=== PATIENT | male | born 2005 | race African-American/Black ===

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

== ENCOUNTER 2024-02-17 09:28 | Inpatient (IN) | payer MEDICAID, OTHER ==
[~2024-02-17] VITALS: Ht 188 cm; Wt 129.2 kg
[~2024-02-17 09:28] MED LIST changes: +INVE234I IM; +NICO21PAT TD; +PALI1TAB3 PO; +TRAZ-252 PO
[2024-02-17] MEDS ORDERED: DIVA500T94 PO (09:41)
[2024-02-17] MEDS ORDERED: PROP10TA56 PO (09:41)
[2024-02-17] MEDS ORDERED: CLOZ100T5 PO (09:41)
[2024-02-17] MEDS ORDERED: FERR325T3 PO (09:41)
[2024-02-17] MEDS ORDERED: HOME MED LIST COMPLETE! XX SCH (11:05)
[2024-02-17 11:19] LABS: HEMATOCRIT 43.7 % (42.0-52.0); HEMOGLOBIN 15.2 g/dl (13.5-17.5); MEAN CORPUSCULAR HGB CONC 34.8 g/dl (32.0-36.5); MEAN CORPUSCULAR VOLUME 86.4 fl (80.0-96.0); PLATELET COUNT, AUTOMATED 278 10^3/uL (150-450); RED BLOOD COUNT 5.06 10^6/uL (4.30-6.10); WHITE BLOOD COUNT 7.1 10^3/uL (4.0-10.0)
[2024-02-17 11:42] LABS: AMPHETAMINES LEVEL URINE NEGATIVE (NEGATIVE); BARBITURATES URINE NEGATIVE (NEGATIVE)
[2024-02-17 11:44] LABS: BENZODIAZEPINES URINE NEGATIVE (NEGATIVE); COCAINE METABOLITE URINE NEGATIVE (NEGATIVE); METHADONE URINE NEGATIVE (NEGATIVE); OPIATES URINE NEGATIVE (NEGATIVE); PHENCYCLIDINE URINE NEGATIVE (NEGATIVE)
[2024-02-17 11:46] LABS: ETHYL ALCOHOL (ETHANOL) < 0.003 % (0.000-0.010)
[2024-02-17 11:48] LABS: ALBUMIN 3.9 G/DL (3.2-5.2); ALKALINE PHOSPHATASE 95 U/L (46-116); ALT/SGPT 45 U/L (7.0-40); AST/SGOT 24 U/L (<34); BILIRUBIN,DIRECT 0.2 MG/DL (<0.4); BILIRUBIN,TOTAL 0.4 MG/DL (0.3-1.2); BLOOD UREA NITROGEN 14 MG/DL (9-23); CALCIUM LEVEL 9.4 MG/DL (8.5-10.1); CARBON DIOXIDE LEVEL 27 MMOL/L (20-31); CHLORIDE LEVEL 106 MMOL/L (98-107); CREATININE FOR GFR 0.82 MG/DL (0.70-1.30); GLUCOSE, FASTING 81 MG/DL (60-100); POTASSIUM SERUM 4.4 MMOL/L (3.5-5.1); SALICYLATE LEVEL < 3.0 MG/DL (<30); SODIUM LEVEL 139 MMOL/L (136-145); TOTAL PROTEIN 6.7 G/DL (5.7-8.2)
[2024-02-17 11:49] LABS: CANNABINOIDS URINE POSITIVE (NEGATIVE)
[2024-02-17 11:50] LABS: THYROID STIMULATING HORMONE 1.397 uIU/ML (0.48-4.17)
[2024-02-17] MEDS ORDERED: traZODone 50 MG TAB PO PRN (14:00)
[2024-02-17] MEDS ORDERED: OLANZapine ORAL DISINTEGRATING TAB 5MG PO PRN (14:00)
[2024-02-17] MEDS ORDERED: ACETAMINOPHEN TAB 650MG DOSE (2X325MG) PO PRN (14:00)
[2024-02-17] MEDS ORDERED: MAALOX 30 ML SUSP *UDC PO PRN (14:00)
[2024-02-17] MEDS ORDERED: diphenhydrAMINE 25MG CAP PO PRN (14:00)
[2024-02-17] MEDS ORDERED: IBUPROFEN 400MG TAB PO PRN (14:00)
[2024-02-17] MEDS ORDERED: MOM 30ML SUSPENSION UDC PO PRN (14:00)
[2024-02-17 17:34] VITALS: BP 146/71; TEMP 98.3; O2SAT 99
[2024-02-18 06:05] VITALS: BP 160/70; TEMP 97.6; O2SAT 100
== END 2024-02-18 14:44 | disposition home or self-care (01) | DRG 751 ==
LOC: M ED 09:28 → M ED INP 13:58 → M PSY 17:17
PROVIDERS: ADMIT Student in an Organized Health Care Education/Training Program; ATTEND Student in an Organized Health Care Education/Training Program
DX: F29 Unspecified psychosis not due to a substance or known physiological condition (principal); F12.90 Cannabis use, unspecified, uncomplicated; F90.9 Attention-deficit hyperactivity disorder, unspecified type; F20.9 Schizophrenia, unspecified; Z91.148 Patient's other noncompliance with medication regimen for other reason

== ENCOUNTER 2024-05-26 11:15 | Inpatient (IN) | payer MEDICAID ==
[~2024-05-26] VITALS: Ht 185.4 cm; Wt 113.7 kg
[~2024-05-26 11:15] MED LIST changes: +CLOZ100T5 PO; +DIVA500T94 PO; +FERR325T3 PO; +PROP10TA56 PO
[2024-05-26 12:10] LABS: HEMATOCRIT 39.9 % (42.0-52.0); HEMOGLOBIN 13.6 g/dl (13.5-17.5); MEAN CORPUSCULAR HEMOGLOBIN 29.7 pg (27.0-33.0); MEAN CORPUSCULAR HGB CONC 34.1 g/dl (32.0-36.5); MEAN CORPUSCULAR VOLUME 87.1 fl (80.0-96.0); PLATELET COUNT, AUTOMATED 266 10^3/uL (150-450); RED BLOOD COUNT 4.58 10^6/uL (4.30-6.10); WHITE BLOOD COUNT 6.6 10^3/uL (4.0-10.0)
[2024-05-26] MEDS: HALOPERIDOL LACTATE 5MG/ML VIAL IM ONE (12:30)
[2024-05-26] MEDS: LORazepam 2 MG/ML 1ML VIAL IM ONE (12:30)
[2024-05-26] MEDS ORDERED: HOME MED LIST COMPLETE! XX SCH (12:30)
[2024-05-26 12:34] LABS: AMPHETAMINES LEVEL URINE NEGATIVE (NEGATIVE); BARBITURATES URINE NEGATIVE (NEGATIVE); BENZODIAZEPINES URINE NEGATIVE (NEGATIVE); COCAINE METABOLITE URINE NEGATIVE (NEGATIVE); METHADONE URINE NEGATIVE (NEGATIVE); OPIATES URINE NEGATIVE (NEGATIVE); PHENCYCLIDINE URINE NEGATIVE (NEGATIVE)
[2024-05-26 12:35] LABS: ETHYL ALCOHOL (ETHANOL) < 0.003 % (0.000-0.010)
[2024-05-26 12:37] LABS: ALBUMIN 3.8 G/DL (3.2-5.2); ALKALINE PHOSPHATASE 83 U/L (46-116); ALT/SGPT 41 U/L (7.0-40); AST/SGOT 24 U/L (<34); BILIRUBIN,DIRECT 0.2 MG/DL (<0.4); BILIRUBIN,TOTAL 0.5 MG/DL (0.3-1.2); BLOOD UREA NITROGEN 18 MG/DL (9-23); CALCIUM LEVEL 8.9 MG/DL (8.5-10.1); CARBON DIOXIDE LEVEL 25 MMOL/L (20-31); CHLORIDE LEVEL 109 MMOL/L (98-107); CREATININE FOR GFR 0.82 MG/DL (0.70-1.30); GLUCOSE, FASTING 82 MG/DL (60-100); POTASSIUM SERUM 3.8 MMOL/L (3.5-5.1); SALICYLATE LEVEL < 3.0 MG/DL (<30); SODIUM LEVEL 139 MMOL/L (136-145); TOTAL PROTEIN 6.3 G/DL (5.7-8.2)
[2024-05-26 12:39] LABS: THYROID STIMULATING HORMONE 0.847 uIU/ML (0.48-4.17)
[2024-05-26 12:46] LABS: CANNABINOIDS URINE POSITIVE (NEGATIVE)
[2024-05-26] MEDS ORDERED: IBUPROFEN 400MG TAB PO PRN (13:25)
[2024-05-26] MEDS ORDERED: MAALOX 30 ML SUSP *UDC PO PRN (13:25)
[2024-05-26] MEDS ORDERED: ACETAMINOPHEN TAB 650MG DOSE (2X325MG) PO PRN (13:25)
[2024-05-26] MEDS ORDERED: MOM 30ML SUSPENSION UDC PO PRN (13:25)
[2024-05-26] MEDS ORDERED: diphenhydrAMINE 25MG CAP PO PRN (13:25)
[2024-05-26 16:12] VITALS: BP 137/59; TEMP 98.1; O2SAT 100
[2024-05-27] MEDS ORDERED: diphenhydrAMINE 50MG CAP PO PRN (10:40)
[2024-05-27] MEDS ORDERED: LORazepam 2 MG TAB PO PRN (10:40)
[2024-05-27] MEDS: DIVALPROEX 250MG TAB PO SCH (12:11)
[2024-05-28] MEDS: LORazepam 2 MG TAB PO PRN (14:05)
[2024-05-28 16:06] VITALS: BP 140/70; TEMP 98.3; O2SAT 100
[2024-05-29 16:03] VITALS: BP 150/74; TEMP 97.9; O2SAT 99
[2024-05-29] MEDS: OLANZapine ORAL DISINTEGRATING TAB 5MG PO PRN (17:07)
[2024-05-29] MEDS: DIVALPROEX 250MG TAB PO SCH (20:45)
[2024-05-30 06:10] VITALS: BP 97/66; TEMP 97.9; O2SAT 97
[2024-05-30 18:34] VITALS: BP 149/78; TEMP 98.4; O2SAT 99
[2024-05-30] MEDS: traZODone 50 MG TAB PO PRN (21:35)
[2024-05-31 06:10] VITALS: BP 116/57; TEMP 97.4; O2SAT 100
[2024-05-31] MEDS ORDERED: HALO10TA20 PO (09:56)
[2024-05-31] MEDS ORDERED: DEPA250T32 PO (09:56)
[2024-05-31] MEDS ORDERED: TRAZ-252 PO (10:47)
[2024-05-31] MEDS ORDERED: OLAN5ZYD PO (10:47)
== END 2024-05-31 12:20 | disposition home or self-care (01) | DRG 750 ==
LOC: M ED 11:15 → M ED INP 13:25 → M PSY 16:12
PROVIDERS: ADMIT Psychiatry & Neurology Child & Adolescent Psychiatry; ATTEND Psychiatry & Neurology Child & Adolescent Psychiatry
DX: F20.0 Paranoid schizophrenia (principal); Z91.119 Patient's noncompliance with dietary regimen due to unspecified reason; F12.90 Cannabis use, unspecified, uncomplicated; Z91.148 Patient's other noncompliance with medication regimen for other reason

== ENCOUNTER 2024-05-31 19:02 | Emergency (ER) | payer MEDICAID, OTHER ==
[~2024-05-31] VITALS: Ht 185.4 cm; Wt 90.0 kg
[~2024-05-31 19:02] MED LIST changes: +DEPA250T32 PO; +HALO10TA20 PO; +OLAN5ZYD PO
[2024-05-31 19:45] VITALS: BP 122/84; TEMP 98.8; O2SAT 98
== END 2024-05-31 20:32 | disposition left against medical advice (07) ==
LOC: M ED 19:02 → EDBD 19:02 → M ED 20:32
DX: Z53.21 Procedure and treatment not carried out due to patient leaving prior to being seen by health care provider (principal)

== ENCOUNTER 2024-06-08 19:57 | Observation (INO) | payer OTHER ==
[~2024-06-08] VITALS: Ht 188 cm; Wt 115.5 kg
[2024-06-08 20:44] LABS: BASO # 0.1 10^3/uL (0.0-0.2); BASO % 0.3 % (0.0-1.0); EOS % 0.1 % (0.0-3.0); HEMATOCRIT 41.9 % (42.0-52.0); HEMOGLOBIN 14.8 g/dl (13.5-17.5); LYMPH % 6.1 % (24.0-44.0); MEAN CORPUSCULAR HEMOGLOBIN 30.1 pg (27.0-33.0); MEAN CORPUSCULAR HGB CONC 35.3 g/dl (32.0-36.5); MEAN CORPUSCULAR VOLUME 85.2 fl (80.0-96.0); MONO # 0.7 10^3/uL (0.0-0.8); MONO % 4.3 % (2.0-8.0); NEUTROPHILS % 88.9 % (36.0-66.0); PLATELET COUNT, AUTOMATED 272 10^3/uL (150-450); RED BLOOD COUNT 4.92 10^6/uL (4.30-6.10); WHITE BLOOD COUNT 15.8 10^3/uL (4.0-10.0)
[2024-06-08 21:05] LABS: ETHYL ALCOHOL (ETHANOL) 0.006 % (0.000-0.010)
[2024-06-08 21:06] LABS: SALICYLATE LEVEL < 3.0 MG/DL (<30)
[2024-06-08 21:07] LABS: ALKALINE PHOSPHATASE 92 U/L (46-116); ALT/SGPT 32 U/L (7.0-40); AST/SGOT 33 U/L (<34); BILIRUBIN,DIRECT 0.1 MG/DL (<0.4); BILIRUBIN,TOTAL 0.4 MG/DL (0.3-1.2); BLOOD UREA NITROGEN 17 MG/DL (9-23); CALCIUM LEVEL 9.2 MG/DL (8.5-10.1); CARBON DIOXIDE LEVEL 25 MMOL/L (20-31); CHLORIDE LEVEL 105 MMOL/L (98-107); CREATININE FOR GFR 0.85 MG/DL (0.70-1.30); GLUCOSE, FASTING 93 MG/DL (60-100); POTASSIUM SERUM 4.9 MMOL/L (3.5-5.1); SODIUM LEVEL 138 MMOL/L (136-145); TOTAL PROTEIN 7.2 G/DL (5.7-8.2)
[2024-06-08 21:09] LABS: THYROID STIMULATING HORMONE 1.384 uIU/ML (0.48-4.17)
[2024-06-08 21:21] LABS: CPK CREATINE PHOSPHOKINASE 593 U/L (46-171)
[2024-06-08 22:03] LABS: AMPHETAMINES LEVEL URINE NEGATIVE (NEGATIVE); BARBITURATES URINE NEGATIVE (NEGATIVE); BENZODIAZEPINES URINE NEGATIVE (NEGATIVE); COCAINE METABOLITE URINE NEGATIVE (NEGATIVE); METHADONE URINE NEGATIVE (NEGATIVE); OPIATES URINE NEGATIVE (NEGATIVE); PHENCYCLIDINE URINE NEGATIVE (NEGATIVE)
[2024-06-08 22:07] LABS: CANNABINOIDS URINE POSITIVE (NEGATIVE)
[2024-06-08] MEDS: LORazepam 2 MG/ML 1ML VIAL IM STA (22:20)
[2024-06-08] MEDS: BENZTROPINE 1 MG TAB PO ONE (23:26)
[2024-06-09] MEDS ORDERED: DIVA250T67 PO (10:49)
[2024-06-09] MEDS ORDERED: HALO10TA2 PO (10:49)
[2024-06-09] MEDS ORDERED: TRAZ1TAB10 PO (10:49)
[2024-06-09] MEDS ORDERED: OLAN1TAB16 PO (10:49)
[2024-06-09] MEDS ORDERED: HOME MED LIST COMPLETE! XX SCH (10:50)
[2024-06-09 14:35] LABS: CPK CREATINE PHOSPHOKINASE 1477 U/L (46-171)
[2024-06-09] MEDS ORDERED: MOM 30ML SUSPENSION UDC PO PRN (15:55)
[2024-06-09] MEDS ORDERED: MAALOX 30 ML SUSP *UDC PO PRN (15:55)
[2024-06-09] MEDS ORDERED: ACETAMINOPHEN TAB 650MG DOSE (2X325MG) PO PRN (15:55)
[2024-06-09] MEDS: NS 1,000 ML IV ONE ×3 (16:04→17:09)
[2024-06-09 16:35] LABS: ALBUMIN 3.7 G/DL (3.2-5.2); ALKALINE PHOSPHATASE 92 U/L (46-116); ALT/SGPT 40 U/L (7.0-40); AST/SGOT 52 U/L (<34); BILIRUBIN,TOTAL 0.4 MG/DL (0.3-1.2); BLOOD UREA NITROGEN 15 MG/DL (9-23); CALCIUM LEVEL 9.1 MG/DL (8.5-10.1); CARBON DIOXIDE LEVEL 23 MMOL/L (20-31); CHLORIDE LEVEL 107 MMOL/L (98-107); CREATININE FOR GFR 0.75 MG/DL (0.70-1.30); GLUCOSE, FASTING 116 MG/DL (60-100); PHOSPHORUS LEVEL 4.2 MG/DL (2.5-4.9); POTASSIUM SERUM 4.2 MMOL/L (3.5-5.1); SODIUM LEVEL 138 MMOL/L (136-145); TOTAL PROTEIN 6.9 G/DL (5.7-8.2)
[2024-06-09 17:29] VITALS: BP 124/57; TEMP 98.8; O2SAT 99
[2024-06-09] MEDS: NS 1,000 ML IV SCH (18:05)
[2024-06-09 20:29] VITALS: BP 132/88; TEMP 98.4; O2SAT 99
[2024-06-10] MEDS ORDERED: OLANZapine 5 MG TAB PO PRN (00:05)
[2024-06-10] MEDS: traZODone 50 MG TAB PO PRN (00:12)
[2024-06-10 04:09] VITALS: BP 132/83; TEMP 98.1; O2SAT 100
[2024-06-10 06:43] LABS: BLOOD UREA NITROGEN 8 MG/DL (9-23); CALCIUM LEVEL 8.3 MG/DL (8.5-10.1); CARBON DIOXIDE LEVEL 24 MMOL/L (20-31); CHLORIDE LEVEL 111 MMOL/L (98-107); GLUCOSE, FASTING 87 MG/DL (60-100); MAGNESIUM LEVEL 1.7 MG/DL (1.8-2.4); POTASSIUM SERUM 4.3 MMOL/L (3.5-5.1); SODIUM LEVEL 141 MMOL/L (136-145)
[2024-06-10] MEDS: MAG SULF 1GM/100ML (MAG RUN) 1 GM in IV 1 EA IV SCH (07:32)
[2024-06-10] MEDS: DIVALPROEX 500 MG TAB PO SCH (08:58)
[2024-06-10] MEDS: ENOXAPARIN 40MG/0.4ML SYRINGE (J1650 PER 10MG) SC SCH (08:59)
[2024-06-10] MEDS ORDERED: BENZTROPINE 0.5 MG TAB PO SCH ×2 (09:00→21:00)
[2024-06-10 12:17] VITALS: BP 136/71; TEMP 98.4; O2SAT 100
[2024-06-10 12:21] LABS: BASO # 0.1 10^3/uL (0.0-0.2); BASO % 0.9 % (0.0-1.0); EOS # 0.1 10^3/uL (0.0-0.5); EOS % 1.3 % (0.0-3.0); HEMATOCRIT 41.6 % (42.0-52.0); HEMOGLOBIN 14.2 g/dl (13.5-17.5); LYMPH # 1.4 10^3/uL (1.5-5.0); LYMPH % 20.5 % (24.0-44.0); MEAN CORPUSCULAR HEMOGLOBIN 30.4 pg (27.0-33.0); MEAN CORPUSCULAR HGB CONC 34.1 g/dl (32.0-36.5); MEAN CORPUSCULAR VOLUME 89.1 fl (80.0-96.0); MONO # 0.5 10^3/uL (0.0-0.8); MONO % 6.6 % (2.0-8.0); NEUTROPHILS # 4.9 10^3/uL (1.5-8.5); NEUTROPHILS % 70.6 % (36.0-66.0); PLATELET COUNT, AUTOMATED 264 10^3/uL (150-450); RED BLOOD COUNT 4.67 10^6/uL (4.30-6.10); WHITE BLOOD COUNT 6.9 10^3/uL (4.0-10.0)
[2024-06-10 12:50] LABS: MAGNESIUM LEVEL 2.1 MG/DL (1.8-2.4)
[2024-06-10 13:50] VITALS: BP 150/86; TEMP 98.2; O2SAT 100
[2024-06-10] MEDS ORDERED: HALO5TAB33 PO (14:21)
[2024-06-10] MEDS ORDERED: BENZ0.5T2 PO (14:21)
[2024-06-10] MEDS ORDERED: BENZTROPINE 0.5 MG TAB PO ONE (19:00)
== END 2024-06-10 18:29 | disposition home or self-care (01) ==
LOC: M ED 19:57 → EDBD 19:57 → M ED INP 06-09 15:52 → M MS5PR 06-09 17:24 → M MSPAV 06-10 12:40
PROVIDERS: ADMIT Student in an Organized Health Care Education/Training Program; ATTEND Student in an Organized Health Care Education/Training Program
DX: M62.82 Rhabdomyolysis (principal); F20.9 Schizophrenia, unspecified; F84.9 Pervasive developmental disorder, unspecified; F12.90 Cannabis use, unspecified, uncomplicated; I49.1 Atrial premature depolarization; Z91.148 Patient's other noncompliance with medication regimen for other reason; Z79.899 Other long term (current) drug therapy
CPT/HCPCS: 36415; 51701; 70450; 71045; 72125; 80048; 80053; 80076; 80143; 80164; 80307; 81001; 82077; 82140; 82550; 83735; 84100; 84443; 85025; 93005; 93041; 94760; 96360; 96372; 99285; J1650; J2060; J3475

== ENCOUNTER 2024-06-14 21:54 | Emergency (ER) | payer OTHER ==
[~2024-06-14] VITALS: Ht 177.8 cm; Wt 100.0 kg
[~2024-06-14 21:54] MED LIST changes: +BENZ0.5T2 PO; +DIVA250T67 PO; +HALO10TA2 PO; +HALO5TAB33 PO; +OLAN1TAB16 PO; +TRAZ1TAB10 PO
[2024-06-15] MEDS ORDERED: BENZ0.5T2 PO (05:53)
[2024-06-15] MEDS ORDERED: HALO5TAB33 PO (05:53)
[2024-06-15] MEDS ORDERED: HOME MED LIST COMPLETE! XX SCH (05:55)
[2024-06-15] MEDS ORDERED: OLANZapine 10 MG TAB PO PRN (06:10)
[2024-06-15] MEDS ORDERED: traZODone 50 MG TAB PO PRN (06:10)
[2024-06-15] MEDS ORDERED: DIVALPROEX 250MG TAB PO SCH (09:00)
[2024-06-15] MEDS: DIVALPROEX 250MG TAB PO SCH (09:11)
[2024-06-15] MEDS: BENZTROPINE 0.5 MG TAB PO SCH (09:11)
[2024-06-15 13:19] VITALS: BP 142/73; TEMP 97.9; O2SAT 100
== END 2024-06-15 13:26 | disposition home or self-care (01) ==
LOC: M ED 21:54
DX: F20.9 Schizophrenia, unspecified (principal); F12.10 Cannabis abuse, uncomplicated; Z79.899 Other long term (current) drug therapy

== ENCOUNTER 2024-06-28 13:33 | Emergency (ER) | payer OTHER ==
[2024-06-28 14:14] VITALS: BP 180/85; TEMP 98.3; O2SAT 100
== END 2024-06-28 14:21 | disposition home or self-care (01) ==
LOC: M ED 13:33
DX: F20.9 Schizophrenia, unspecified (principal); Z79.899 Other long term (current) drug therapy

== ENCOUNTER 2024-07-04 13:10 | Emergency (ER) | payer OTHER ==
[~2024-07-04] VITALS: Ht 188 cm; Wt 112.5 kg
[2024-07-04] MEDS ORDERED: HALO1TAB PO (13:41)
[2024-07-04 14:02] LABS: HEMATOCRIT 41.3 % (42.0-52.0); HEMOGLOBIN 14.3 g/dl (13.5-17.5); MEAN CORPUSCULAR HEMOGLOBIN 30.2 pg (27.0-33.0); MEAN CORPUSCULAR HGB CONC 34.6 g/dl (32.0-36.5); MEAN CORPUSCULAR VOLUME 87.3 fl (80.0-96.0); PLATELET COUNT, AUTOMATED 294 10^3/uL (150-450); RED BLOOD COUNT 4.73 10^6/uL (4.30-6.10)
[2024-07-04 14:26] LABS: ETHYL ALCOHOL (ETHANOL) 0.006 % (0.000-0.010)
[2024-07-04 14:27] LABS: ALBUMIN 3.9 G/DL (3.2-5.2); ALKALINE PHOSPHATASE 89 U/L (46-116); ALT/SGPT 38 U/L (7.0-40); AST/SGOT 28 U/L (<34); BILIRUBIN,DIRECT 0.1 MG/DL (<0.4); BILIRUBIN,TOTAL 0.4 MG/DL (0.3-1.2); BLOOD UREA NITROGEN 14 MG/DL (9-23); CALCIUM LEVEL 8.8 MG/DL (8.5-10.1); CARBON DIOXIDE LEVEL 24 MMOL/L (20-31); CHLORIDE LEVEL 109 MMOL/L (98-107); CREATININE FOR GFR 0.79 MG/DL (0.70-1.30); GLUCOSE, FASTING 140 MG/DL (60-100); POTASSIUM SERUM 3.6 MMOL/L (3.5-5.1); SALICYLATE LEVEL < 3.0 MG/DL (<30); SODIUM LEVEL 138 MMOL/L (136-145); TOTAL PROTEIN 6.7 G/DL (5.7-8.2)
[2024-07-04 14:29] LABS: THYROID STIMULATING HORMONE 0.692 uIU/ML (0.48-4.17)
[2024-07-04 14:36] LABS: AMPHETAMINES LEVEL URINE NEGATIVE (NEGATIVE); BARBITURATES URINE NEGATIVE (NEGATIVE); BENZODIAZEPINES URINE NEGATIVE (NEGATIVE); COCAINE METABOLITE URINE NEGATIVE (NEGATIVE); METHADONE URINE NEGATIVE (NEGATIVE); OPIATES URINE NEGATIVE (NEGATIVE); PHENCYCLIDINE URINE NEGATIVE (NEGATIVE)
[2024-07-04 15:03] LABS: CANNABINOIDS URINE POSITIVE (NEGATIVE)
[2024-07-04 18:30] VITALS: BP 164/82; TEMP 97.7; O2SAT 100
== END 2024-07-04 18:33 | disposition home or self-care (01) ==
LOC: EDBD 13:10 → M ED 13:10
DX: F98.9 Unspecified behavioral and emotional disorders with onset usually occurring in childhood and adolescence (principal); F20.9 Schizophrenia, unspecified; F19.10 Other psychoactive substance abuse, uncomplicated; Z79.899 Other long term (current) drug therapy

== ENCOUNTER 2024-07-06 23:58 | Inpatient (IN) | payer MEDICAID, OTHER ==
[~2024-07-06 23:58] MED LIST changes: +HALO1TAB PO
[2024-07-07 00:53] LABS: AMPHETAMINES LEVEL URINE NEGATIVE (NEGATIVE)
[2024-07-07 00:54] LABS: BARBITURATES URINE NEGATIVE (NEGATIVE); BENZODIAZEPINES URINE NEGATIVE (NEGATIVE); COCAINE METABOLITE URINE NEGATIVE (NEGATIVE); METHADONE URINE NEGATIVE (NEGATIVE); OPIATES URINE NEGATIVE (NEGATIVE); PHENCYCLIDINE URINE NEGATIVE (NEGATIVE)
[2024-07-07 00:56] LABS: CANNABINOIDS URINE POSITIVE (NEGATIVE)
[2024-07-07 01:07] LABS: HEMATOCRIT 41.6 % (42.0-52.0); HEMOGLOBIN 14.3 g/dl (13.5-17.5); MEAN CORPUSCULAR HEMOGLOBIN 30.2 pg (27.0-33.0); MEAN CORPUSCULAR HGB CONC 34.4 g/dl (32.0-36.5); MEAN CORPUSCULAR VOLUME 87.9 fl (80.0-96.0); PLATELET COUNT, AUTOMATED 308 10^3/uL (150-450); RED BLOOD COUNT 4.73 10^6/uL (4.30-6.10); WHITE BLOOD COUNT 10.1 10^3/uL (4.0-10.0)
[2024-07-07 01:09] LABS: ETHYL ALCOHOL (ETHANOL) < 0.003 % (0.000-0.010)
[2024-07-07 01:10] LABS: SALICYLATE LEVEL < 3.0 MG/DL (<30)
[2024-07-07 01:11] LABS: ALBUMIN 3.9 G/DL (3.2-5.2); ALKALINE PHOSPHATASE 89 U/L (46-116); ALT/SGPT 40 U/L (7.0-40); AST/SGOT 24 U/L (<34); BILIRUBIN,DIRECT 0.1 MG/DL (<0.4); BILIRUBIN,TOTAL 0.3 MG/DL (0.3-1.2); BLOOD UREA NITROGEN 10 MG/DL (9-23); CALCIUM LEVEL 9.1 MG/DL (8.5-10.1); CARBON DIOXIDE LEVEL 25 MMOL/L (20-31); CHLORIDE LEVEL 108 MMOL/L (98-107); CREATININE FOR GFR 0.81 MG/DL (0.70-1.30); GLUCOSE, FASTING 95 MG/DL (60-100); POTASSIUM SERUM 3.9 MMOL/L (3.5-5.1); SODIUM LEVEL 137 MMOL/L (136-145); TOTAL PROTEIN 6.8 G/DL (5.7-8.2)
[2024-07-07 01:13] LABS: THYROID STIMULATING HORMONE 1.433 uIU/ML (0.48-4.17)
[2024-07-07] MEDS ORDERED: HOME MED LIST COMPLETE! XX SCH (01:55)
[2024-07-07 08:08] LABS: VALPROIC ACID (DEPAKOTE) < 3.0 UG/ML (50.0-100.0)
[2024-07-07] MEDS: FERROUS SULFATE 325MG TAB PO SCH (12:24)
[2024-07-07] MEDS: BENZTROPINE 0.5 MG TAB PO SCH (12:24)
[2024-07-07] MEDS: DIVALPROEX 500 MG TAB PO SCH (12:24)
[2024-07-07] MEDS ORDERED: MAALOX 30 ML SUSP *UDC PO PRN (14:00)
[2024-07-07] MEDS ORDERED: IBUPROFEN 400MG TAB PO PRN (14:00)
[2024-07-07] MEDS ORDERED: MOM 30ML SUSPENSION UDC PO PRN (14:00)
[2024-07-07] MEDS ORDERED: ACETAMINOPHEN TAB 650MG DOSE (2X325MG) PO PRN (14:00)
[2024-07-08 06:06] VITALS: BP 144/69; TEMP 96.8; O2SAT 100
[2024-07-08] MEDS: DIVALPROEX 500 MG TAB PO SCH (09:37)
[2024-07-08 16:11] VITALS: BP 135/63; TEMP 97.7; O2SAT 100
[2024-07-08] MEDS: risperiDONE 2 MG TAB PO SCH (20:12)
[2024-07-09 16:04] VITALS: BP 140/73; TEMP 97.8; O2SAT 100
[2024-07-09] MEDS: traZODone 50 MG TAB PO PRN (20:29)
[2024-07-10] MEDS: diphenhydrAMINE 25MG CAP PO PRN (11:18)
[2024-07-10 15:50] VITALS: BP 139/70; TEMP 97.5; O2SAT 100
[2024-07-10] MEDS: risperiDONE 3 MG TAB PO SCH (20:17)
[2024-07-11 06:20] VITALS: BP 134/62; TEMP 97.2; O2SAT 98
[2024-07-11] MEDS: PALIPERIDONE PAL 234MG/1.5ML INJ (INVEGA)(FREE PSY INPT ONLY) IM ONE (10:56)
[2024-07-11 14:29] VITALS: BP 147/62; TEMP 98; O2SAT 100
[2024-07-12] MEDS ORDERED: RISP3TAB20 PO (09:19)
[2024-07-12] MEDS ORDERED: INVE156I IM (10:19)
[2024-07-12] MEDS ORDERED: INVE234I IM (10:19)
== END 2024-07-12 11:01 | disposition home or self-care (01) | DRG 751 ==
LOC: M ED 23:58 → M ED INP 07-07 14:00 → M PSY 07-07 15:18
PROVIDERS: ADMIT Psychiatry & Neurology Psychiatry; ATTEND Psychiatry & Neurology Psychiatry
DX: F23 Brief psychotic disorder (principal); F12.90 Cannabis use, unspecified, uncomplicated; F17.200 Nicotine dependence, unspecified, uncomplicated; Z79.899 Other long term (current) drug therapy

== ENCOUNTER 2024-07-23 18:03 | Emergency (ER) | payer MEDICAID, OTHER ==
[~2024-07-23 18:03] MED LIST changes: +INVE156I IM; +RISP3TAB20 PO
[2024-07-23 18:10] VITALS: BP 156/65; TEMP 97.9; O2SAT 98
== END 2024-07-23 20:11 | disposition left against medical advice (07) ==
LOC: M ED 18:03 → EDBD 18:03 → M ED 20:11
DX: Z53.21 Procedure and treatment not carried out due to patient leaving prior to being seen by health care provider (principal)

== ENCOUNTER 2024-08-31 17:27 | Emergency (ER) | payer OTHER ==
[2024-08-31 17:54] LABS: HEMATOCRIT 42.7 % (42.0-52.0); HEMOGLOBIN 14.8 g/dl (13.5-17.5); MEAN CORPUSCULAR HEMOGLOBIN 30.4 pg (27.0-33.0); MEAN CORPUSCULAR HGB CONC 34.7 g/dl (32.0-36.5); MEAN CORPUSCULAR VOLUME 87.7 fl (80.0-96.0); PLATELET COUNT, AUTOMATED 325 10^3/uL (150-450); RED BLOOD COUNT 4.87 10^6/uL (4.30-6.10); WHITE BLOOD COUNT 13.1 10^3/uL (4.0-10.0)
[2024-08-31] MEDS ORDERED: RISP3TAB77 PO (17:58)
[2024-08-31] MEDS ORDERED: HOME MED LIST COMPLETE! XX SCH (18:00)
[2024-08-31 18:14] LABS: AMPHETAMINES LEVEL URINE NEGATIVE (NEGATIVE); BARBITURATES URINE NEGATIVE (NEGATIVE)
[2024-08-31 18:15] LABS: BENZODIAZEPINES URINE NEGATIVE (NEGATIVE); COCAINE METABOLITE URINE NEGATIVE (NEGATIVE); METHADONE URINE NEGATIVE (NEGATIVE); OPIATES URINE NEGATIVE (NEGATIVE); PHENCYCLIDINE URINE NEGATIVE (NEGATIVE)
[2024-08-31 18:17] LABS: CANNABINOIDS URINE POSITIVE (NEGATIVE); ETHYL ALCOHOL (ETHANOL) 0.004 % (0.000-0.010)
[2024-08-31 18:18] LABS: ALBUMIN 3.9 G/DL (3.2-5.2); ALKALINE PHOSPHATASE 79 U/L (40-129); ALT/SGPT 28 U/L (7.0-40); AST/SGOT 19 U/L (<34); BILIRUBIN,DIRECT 0.1 MG/DL (<0.4); BILIRUBIN,TOTAL 0.4 MG/DL (0.3-1.2); BLOOD UREA NITROGEN 18 MG/DL (9-23); CALCIUM LEVEL 9.8 MG/DL (8.5-10.1); CARBON DIOXIDE LEVEL 25 MMOL/L (20-31); CHLORIDE LEVEL 106 MMOL/L (98-107); CREATININE FOR GFR 0.87 MG/DL (0.70-1.30); GLUCOSE, FASTING 99 MG/DL (60-100); POTASSIUM SERUM 4.1 MMOL/L (3.5-5.1); SALICYLATE LEVEL < 3.0 MG/DL (<30); SODIUM LEVEL 140 MMOL/L (136-145); TOTAL PROTEIN 7.3 G/DL (5.7-8.2)
[2024-08-31 18:20] LABS: THYROID STIMULATING HORMONE 1.939 uIU/ML (0.48-4.17)
[2024-08-31 19:06] LABS: VALPROIC ACID (DEPAKOTE) 56.9 UG/ML (50.0-100.0)
[2024-08-31 21:01] VITALS: BP 144/67; TEMP 97.6; O2SAT 100
== END 2024-08-31 21:14 | disposition home or self-care (01) ==
LOC: M ED 17:27
DX: F20.9 Schizophrenia, unspecified (principal); Z79.899 Other long term (current) drug therapy

== ENCOUNTER 2024-09-01 12:25 | Emergency (ER) | payer OTHER ==
[~2024-09-01 12:25] MED LIST changes: +RISP3TAB77 PO
[2024-09-01 13:13] LABS: HEMOGLOBIN 14.3 g/dl (13.5-17.5); MEAN CORPUSCULAR HEMOGLOBIN 30.7 pg (27.0-33.0); MEAN CORPUSCULAR VOLUME 90.1 fl (80.0-96.0); PLATELET COUNT, AUTOMATED 296 10^3/uL (150-450); RED BLOOD COUNT 4.66 10^6/uL (4.30-6.10); WHITE BLOOD COUNT 9.9 10^3/uL (4.0-10.0)
[2024-09-01 13:32] LABS: ETHYL ALCOHOL (ETHANOL) < 0.003 % (0.000-0.010)
[2024-09-01 13:34] LABS: ALBUMIN 3.8 G/DL (3.2-5.2); ALKALINE PHOSPHATASE 80 U/L (40-129); ALT/SGPT 30 U/L (7.0-40); AST/SGOT 18 U/L (<34); BILIRUBIN,DIRECT 0.2 MG/DL (<0.4); BILIRUBIN,TOTAL 0.5 MG/DL (0.3-1.2); BLOOD UREA NITROGEN 14 MG/DL (9-23); CALCIUM LEVEL 9.8 MG/DL (8.5-10.1); CARBON DIOXIDE LEVEL 27 MMOL/L (20-31); CHLORIDE LEVEL 105 MMOL/L (98-107); GLUCOSE, FASTING 81 MG/DL (60-100); POTASSIUM SERUM 4.3 MMOL/L (3.5-5.1); SALICYLATE LEVEL < 3.0 MG/DL (<30); SODIUM LEVEL 137 MMOL/L (136-145); TOTAL PROTEIN 7.5 G/DL (5.7-8.2)
[2024-09-01 13:36] LABS: THYROID STIMULATING HORMONE 1.188 uIU/ML (0.48-4.17)
[2024-09-01 13:55] LABS: AMPHETAMINES LEVEL URINE NEGATIVE (NEGATIVE); BARBITURATES URINE NEGATIVE (NEGATIVE); BENZODIAZEPINES URINE NEGATIVE (NEGATIVE); COCAINE METABOLITE URINE NEGATIVE (NEGATIVE); METHADONE URINE NEGATIVE (NEGATIVE); OPIATES URINE NEGATIVE (NEGATIVE); PHENCYCLIDINE URINE NEGATIVE (NEGATIVE)
[2024-09-01 14:02] LABS: CANNABINOIDS URINE POSITIVE (NEGATIVE)
[2024-09-01 15:07] VITALS: BP 142/81; TEMP 98.8; O2SAT 100
== END 2024-09-01 15:10 | disposition home or self-care (01) ==
LOC: M ED 12:25
DX: F43.0 Acute stress reaction (principal); F20.9 Schizophrenia, unspecified; F17.200 Nicotine dependence, unspecified, uncomplicated; Z79.899 Other long term (current) drug therapy

== ENCOUNTER 2024-09-01 19:13 | Emergency (ER) | payer OTHER ==
[2024-09-01 19:28] VITALS: BP 142/65; TEMP 97.8; O2SAT 96
[2024-09-01] MEDS ORDERED: HOME MED LIST COMPLETE! XX SCH (20:00)
[2024-09-01 20:24] LABS: HEMATOCRIT 41.5 % (42.0-52.0); HEMOGLOBIN 14.6 g/dl (13.5-17.5); MEAN CORPUSCULAR HEMOGLOBIN 31.3 pg (27.0-33.0); MEAN CORPUSCULAR HGB CONC 35.2 g/dl (32.0-36.5); MEAN CORPUSCULAR VOLUME 88.9 fl (80.0-96.0); PLATELET COUNT, AUTOMATED 306 10^3/uL (150-450); RED BLOOD COUNT 4.67 10^6/uL (4.30-6.10); WHITE BLOOD COUNT 11.4 10^3/uL (4.0-10.0)
[2024-09-01 20:25] LABS: ETHYL ALCOHOL (ETHANOL) < 0.003 % (0.000-0.010)
[2024-09-01 20:26] LABS: SALICYLATE LEVEL < 3.0 MG/DL (<30)
[2024-09-01 20:27] LABS: ALBUMIN 3.7 G/DL (3.2-5.2); ALKALINE PHOSPHATASE 79 U/L (40-129); ALT/SGPT 27 U/L (7.0-40); AST/SGOT 20 U/L (<34); BILIRUBIN,DIRECT 0.1 MG/DL (<0.4); BILIRUBIN,TOTAL 0.3 MG/DL (0.3-1.2); BLOOD UREA NITROGEN 17 MG/DL (9-23); CARBON DIOXIDE LEVEL 25 MMOL/L (20-31); CHLORIDE LEVEL 109 MMOL/L (98-107); CREATININE FOR GFR 0.87 MG/DL (0.70-1.30); GLUCOSE, FASTING 86 MG/DL (60-100); POTASSIUM SERUM 4.4 MMOL/L (3.5-5.1); SODIUM LEVEL 138 MMOL/L (136-145); TOTAL PROTEIN 7.4 G/DL (5.7-8.2)
[2024-09-01 20:29] LABS: THYROID STIMULATING HORMONE 1.781 uIU/ML (0.48-4.17)
[2024-09-01 20:39] LABS: AMPHETAMINES LEVEL URINE NEGATIVE (NEGATIVE); BARBITURATES URINE NEGATIVE (NEGATIVE); COCAINE METABOLITE URINE NEGATIVE (NEGATIVE); METHADONE URINE NEGATIVE (NEGATIVE); OPIATES URINE NEGATIVE (NEGATIVE)
[2024-09-01 20:40] LABS: BENZODIAZEPINES URINE NEGATIVE (NEGATIVE); PHENCYCLIDINE URINE NEGATIVE (NEGATIVE)
[2024-09-01 20:45] LABS: CANNABINOIDS URINE POSITIVE (NEGATIVE)
== END 2024-09-01 21:19 | disposition home or self-care (01) ==
LOC: M ED 19:13
DX: F20.9 Schizophrenia, unspecified (principal); F98.9 Unspecified behavioral and emotional disorders with onset usually occurring in childhood and adolescence; F12.10 Cannabis abuse, uncomplicated; Z79.899 Other long term (current) drug therapy

== ENCOUNTER 2024-10-03 20:39 | Emergency (ER) | payer OTHER ==
[~2024-10-03] VITALS: Ht 190.5 cm; Wt 109.1 kg
[2024-10-03 20:52] VITALS: BP 157/86; TEMP 98; O2SAT 100
[2024-10-03] MEDS ORDERED: INVE234I IM (21:04)
[2024-10-03] MEDS ORDERED: DIVA500T9 PO (21:05)
[2024-10-03 21:09] LABS: HEMOGLOBIN 14.6 g/dl (13.5-17.5); MEAN CORPUSCULAR HEMOGLOBIN 30.8 pg (27.0-33.0); MEAN CORPUSCULAR HGB CONC 34.8 g/dl (32.0-36.5); MEAN CORPUSCULAR VOLUME 88.6 fl (80.0-96.0); PLATELET COUNT, AUTOMATED 287 10^3/uL (150-450); RED BLOOD COUNT 4.74 10^6/uL (4.30-6.10); WHITE BLOOD COUNT 9.9 10^3/uL (4.0-10.0)
[2024-10-03] MEDS ORDERED: TRAZ-252 PO (21:13)
[2024-10-03] MEDS ORDERED: HOME MED LIST COMPLETE! XX SCH (21:15)
[2024-10-03 21:34] LABS: AMPHETAMINES LEVEL URINE NEGATIVE (NEGATIVE); BARBITURATES URINE NEGATIVE (NEGATIVE); BENZODIAZEPINES URINE NEGATIVE (NEGATIVE); COCAINE METABOLITE URINE NEGATIVE (NEGATIVE); METHADONE URINE NEGATIVE (NEGATIVE); OPIATES URINE NEGATIVE (NEGATIVE); PHENCYCLIDINE URINE NEGATIVE (NEGATIVE)
[2024-10-03 21:34] LABS: ETHYL ALCOHOL (ETHANOL) 0.004 % (0.000-0.010)
[2024-10-03 21:36] LABS: SALICYLATE LEVEL < 3.0 MG/DL (<30)
[2024-10-03 21:36] LABS: CANNABINOIDS URINE POSITIVE (NEGATIVE)
[2024-10-03 21:37] LABS: ALBUMIN 3.7 G/DL (3.2-5.2); ALKALINE PHOSPHATASE 77 U/L (40-129); ALT/SGPT 25 U/L (7.0-40); AST/SGOT 16 U/L (<34); BILIRUBIN,DIRECT 0.1 MG/DL (<0.4); BILIRUBIN,TOTAL 0.3 MG/DL (0.3-1.2); BLOOD UREA NITROGEN 21 MG/DL (9-23); CALCIUM LEVEL 9.4 MG/DL (8.5-10.1); CARBON DIOXIDE LEVEL 22 MMOL/L (20-31); CHLORIDE LEVEL 108 MMOL/L (98-107); CREATININE FOR GFR 0.82 MG/DL (0.70-1.30); GLUCOSE, FASTING 102 MG/DL (60-100); POTASSIUM SERUM 4.2 MMOL/L (3.5-5.1); SODIUM LEVEL 139 MMOL/L (136-145); TOTAL PROTEIN 6.8 G/DL (5.7-8.2)
[2024-10-03 21:40] LABS: THYROID STIMULATING HORMONE 1.393 uIU/ML (0.48-4.17)
== END 2024-10-03 22:32 | disposition home or self-care (01) ==
LOC: M ED 20:39
DX: F43.0 Acute stress reaction (principal); F20.9 Schizophrenia, unspecified; Z79.899 Other long term (current) drug therapy

== ENCOUNTER 2024-10-08 12:31 | Inpatient (IN) | payer MEDICAID, OTHER ==
[~2024-10-08] VITALS: Ht 190.5 cm; Wt 109.0 kg
[~2024-10-08 12:31] MED LIST changes: +DIVA500T9 PO
[2024-10-08 13:32] LABS: HEMATOCRIT 43.7 % (42.0-52.0); HEMOGLOBIN 15.3 g/dl (13.5-17.5); MEAN CORPUSCULAR VOLUME 88.6 fl (80.0-96.0); PLATELET COUNT, AUTOMATED 309 10^3/uL (150-450); RED BLOOD COUNT 4.93 10^6/uL (4.30-6.10); WHITE BLOOD COUNT 14.6 10^3/uL (4.0-10.0)
[2024-10-08 13:56] LABS: AMPHETAMINES LEVEL URINE NEGATIVE (NEGATIVE); BARBITURATES URINE NEGATIVE (NEGATIVE)
[2024-10-08 13:57] LABS: BENZODIAZEPINES URINE NEGATIVE (NEGATIVE); COCAINE METABOLITE URINE NEGATIVE (NEGATIVE); METHADONE URINE NEGATIVE (NEGATIVE); OPIATES URINE NEGATIVE (NEGATIVE); PHENCYCLIDINE URINE NEGATIVE (NEGATIVE)
[2024-10-08 13:59] LABS: ETHYL ALCOHOL (ETHANOL) 0.003 % (0.000-0.010); VALPROIC ACID (DEPAKOTE) 57.1 UG/ML (50.0-100.0)
[2024-10-08 14:01] LABS: ALBUMIN 4.1 G/DL (3.2-5.2); ALKALINE PHOSPHATASE 83 U/L (40-129); ALT/SGPT 33 U/L (7.0-40); AST/SGOT 30 U/L (<34); BILIRUBIN,DIRECT 0.2 MG/DL (<0.4); BILIRUBIN,TOTAL 0.6 MG/DL (0.3-1.2); BLOOD UREA NITROGEN 18 MG/DL (9-23); CANNABINOIDS URINE POSITIVE (NEGATIVE); CARBON DIOXIDE LEVEL 22 MMOL/L (20-31); CHLORIDE LEVEL 109 MMOL/L (98-107); CREATININE FOR GFR 0.79 MG/DL (0.70-1.30); GLOMERULAR FILTRATION RATE > 60.0 (>60); GLUCOSE, FASTING 89 MG/DL (60-100); POTASSIUM SERUM 4.4 MMOL/L (3.5-5.1); SALICYLATE LEVEL < 3.0 MG/DL (<30); SODIUM LEVEL 141 MMOL/L (136-145); TOTAL PROTEIN 7.4 G/DL (5.7-8.2)
[2024-10-08 14:03] LABS: THYROID STIMULATING HORMONE 1.403 uIU/ML (0.55-4.78)
[2024-10-08] MEDS ORDERED: MAALOX 30 ML SUSP *UDC PO PRN (15:25)
[2024-10-08] MEDS ORDERED: traZODone 50 MG TAB PO PRN (15:25)
[2024-10-08] MEDS ORDERED: IBUPROFEN 400MG TAB PO PRN (15:25)
[2024-10-08] MEDS ORDERED: ACETAMINOPHEN 325 MG TAB PO PRN (15:25)
[2024-10-08] MEDS ORDERED: MOM 30ML SUSPENSION UDC PO PRN (15:25)
[2024-10-08] MEDS: OLANZapine ORAL DISINTEGRATING TAB 5MG PO ONE (15:50)
[2024-10-08] MEDS ORDERED: HOME MED LIST COMPLETE! XX SCH (18:05)
[2024-10-09] MEDS: HALOPERIDOL LACTATE 5MG/ML VIAL IM ONE ×2 (15:19→16:51)
[2024-10-09] MEDS: diphenhydrAMINE 50MG/ML VIAL IM ONE ×2 (15:20→16:51)
[2024-10-09] MEDS: LORazepam 2 MG/ML 1ML VIAL IM ONE ×2 (15:20→16:50)
[2024-10-09 16:38] VITALS: BP 145/78; TEMP 98; O2SAT 100
[2024-10-09] MEDS: DIVALPROEX 500MG *ER* TAB PO SCH (21:00)
[2024-10-10 07:45] VITALS: BP 150/67; TEMP 97.5; O2SAT 100
[2024-10-10 07:53] VITALS: BP 150/67; TEMP 97.5; O2SAT 100
[2024-10-10 09:15] VITALS: BP 145/71; TEMP 97.6; O2SAT 100
[2024-10-10] MEDS ORDERED: DEPA500T2 PO (10:03)
[2024-10-10] MEDS ORDERED: INVE234I IM (10:03)
[2024-10-10] MEDS: PALIPERIDONE PAL 234MG/1.5ML INJ (INVEGA)(FREE PSY INPT ONLY) IM ONE (10:15)
[2024-10-10] MEDS: OLANZapine ORAL DISINTEGRATING TAB 5MG PO PRN (10:37)
[2024-10-10] MEDS: diphenhydrAMINE 25MG CAP PO PRN (10:37)
== END 2024-10-10 12:14 | DRG 758 ==
LOC: M ED 12:31 → M ED INP 15:23 → M PSY 21:00
PROVIDERS: ADMIT Psychiatry & Neurology Psychiatry; ATTEND Psychiatry & Neurology Psychiatry
DX: F63.81 Intermittent explosive disorder (principal); Z78.1 Physical restraint status; F20.9 Schizophrenia, unspecified; F25.9 Schizoaffective disorder, unspecified; F60.2 Antisocial personality disorder; F17.200 Nicotine dependence, unspecified, uncomplicated; Z79.899 Other long term (current) drug therapy

== ENCOUNTER 2024-10-11 12:36 | Emergency (ER) | payer MEDICAID ==
[~2024-10-11] VITALS: Ht 190.5 cm; Wt 109.0 kg
[~2024-10-11 12:36] MED LIST changes: +DEPA500T2 PO
[2024-10-11 13:05] VITALS: BP 109/53; TEMP 97.8; O2SAT 100
[2024-10-11] MEDS: diphenhydrAMINE 50MG/ML VIAL IM STA (13:05)
[2024-10-11 13:22] LABS: BASO # 0.1 10^3/uL (0.0-0.2); BASO % 0.6 % (0.0-1.0); EOS # 0.1 10^3/uL (0.0-0.5); EOS % 0.4 % (0.0-3.0); HEMATOCRIT 42.4 % (42.0-52.0); HEMOGLOBIN 14.7 g/dl (13.5-17.5); LYMPH # 1.5 10^3/uL (1.5-5.0); MEAN CORPUSCULAR HEMOGLOBIN 30.6 pg (27.0-33.0); MEAN CORPUSCULAR HGB CONC 34.7 g/dl (32.0-36.5); MEAN CORPUSCULAR VOLUME 88.1 fl (80.0-96.0); MONO # 0.6 10^3/uL (0.0-0.8); NEUTROPHILS # 10.3 10^3/uL (1.5-8.5); NEUTROPHILS % 81.7 % (36.0-66.0); PLATELET COUNT, AUTOMATED 279 10^3/uL (150-450); RED BLOOD COUNT 4.81 10^6/uL (4.30-6.10); WHITE BLOOD COUNT 12.6 10^3/uL (4.0-10.0)
[2024-10-11 13:52] LABS: ETHYL ALCOHOL (ETHANOL) 0.004 % (0.000-0.010); LIPASE 27 U/L (12-53)
[2024-10-11 13:54] LABS: SALICYLATE LEVEL < 3.0 MG/DL (<30)
[2024-10-11 13:55] LABS: ALBUMIN 3.8 G/DL (3.2-5.2); ALKALINE PHOSPHATASE 85 U/L (40-129); ALT/SGPT 59 U/L (7.0-40); AST/SGOT 126 U/L (<34); BILIRUBIN,DIRECT 0.1 MG/DL (<0.4); BILIRUBIN,TOTAL 0.4 MG/DL (0.3-1.2); BLOOD UREA NITROGEN 19 MG/DL (9-23); CALCIUM LEVEL 9.6 MG/DL (8.5-10.1); CARBON DIOXIDE LEVEL 23 MMOL/L (20-31); CHLORIDE LEVEL 105 MMOL/L (98-107); CREATININE FOR GFR 1.11 MG/DL (0.70-1.30); GLOMERULAR FILTRATION RATE > 60.0 (>60); GLUCOSE, FASTING 88 MG/DL (60-100); SODIUM LEVEL 141 MMOL/L (136-145); TOTAL PROTEIN 7.3 G/DL (5.7-8.2)
[2024-10-11 13:57] LABS: THYROID STIMULATING HORMONE 1.524 uIU/ML (0.55-4.78)
[2024-10-11 14:04] LABS: AMPHETAMINES LEVEL URINE NEGATIVE (NEGATIVE); BARBITURATES URINE NEGATIVE (NEGATIVE); BENZODIAZEPINES URINE NEGATIVE (NEGATIVE); COCAINE METABOLITE URINE NEGATIVE (NEGATIVE); METHADONE URINE NEGATIVE (NEGATIVE)
[2024-10-11 14:05] LABS: OPIATES URINE NEGATIVE (NEGATIVE); PHENCYCLIDINE URINE NEGATIVE (NEGATIVE)
[2024-10-11 14:19] LABS: CANNABINOIDS URINE POSITIVE (NEGATIVE)
== END 2024-10-11 16:48 | disposition home or self-care (01) ==
LOC: M ED 12:36
DX: G24.01 Drug induced subacute dyskinesia (principal); F20.0 Paranoid schizophrenia; Z79.899 Other long term (current) drug therapy
CPT/HCPCS: 80048; 80076; 80143; 80164; 80307; 82077; 83690; 84443; 85025; 96374; 99284; J1200